=== PATIENT | female | born 1995 | race Two or more races ===

== ENCOUNTER 2024-06-30 17:39 | Emergency (ER) | payer MEDICAID, SELFPAY ==
[2024-06-30 17:40] VITALS: BMI 33.7
[2024-06-30 18:01] VITALS: BP 148/96; PULSE 95; RESP 18; TEMP 36.9; O2SAT 100
--- NOTE | 2024-06-30 18:29 | PD.EDNV ---
Nausea/Vomit./Diarrhea-RME/HPI General Chief complaint: Nausea/Vomiting/Diarrhea Stated complaint: VOMITING BILE Time Seen by Provider: 06/30/24 18:15 Arrival date/time: 06/30/24 17:39 29F with no significant PMH presents to ED with 1 day of N/V. Patient denies ab pain and drug/alcohol use, as well as dysuria and diarrhea. Limitations: no limitations Related Data Allergies Allergy/AdvReac Type Severity Reaction Status Date / Time No Known Allergies Allergy Verified 06/30/24 17:39 Past Medical History Past Medical History NEUROLOGIC: Negative Neurological Disorders or Seizures CARDIAC: Negative Cardiac Disorders or Congestive Heart Failure RESPIRATORY: Negative Chronic Obstructive Pulmonary Disease (COPD) GASTROINTESTINAL: Negative Gastrointestinal Disorders GENITOURINARY: Negative Genitourinary Disorders or Renal Disease REPRODUCTIVE: Positive Previous Pregnancies MUSCULOSKELETAL: Negative Musculoskeletal Disorders ENDOCRINE: Negative Endocrine Disorders, Diabetes Mellitus Type 1 or Diabetes Mellitus Type 2 HEMATOLOGIC: Negative Blood Disorders or Anemia OTHER HISTORY: Positive Blood Transfusions; Negative Hospitalization, Autoimmune Disease, Falls, Anesthesia Reactions or Cancer Family History FAMILY HISTORY: Positive Family Cancer; Negative Family Psychiatric Problems, Family Respiratory Disorders, Family Cardiac Disorders, Family Gastrointestinal Problems, Family Surgery or Family Anesthesia Reaction Social History SMOKING STATUS: Never smoker ED Exam General Limitations: Present no limitations General appearance: Present alert and in no apparent distress Head Head exam: Present atraumatic Eye Eye exam: Present normal appearance, PERRL and EOMI ENT ENT exam: Present normal exam, normal oropharynx and mucous membranes moist Neck Neck exam: Present normal inspection, full ROM and trachea midline Chest Chest inspection: Present normal inspection and symmetric chest wall rise Respiratory Respiratory exam: Present normal lung sounds bilaterally Cardiovascular Cardiovascular exam: Present regular rate, normal rhythm and normal heart sounds Abdominal Exam Abdominal exam: Present soft and normal bowel sounds Extremities Exam Extremities exam: Present normal inspection and full ROM Back Exam Back exam: Present normal inspection and full ROM Neurological Exam Neurological exam: Present alert, oriented X3 and CN II-XII intact Psychiatric Psychiatric exam: Present normal affect and normal mood Skin Skin exam: Present warm, dry, intact and normal color Course Quality Measures none Orders Category Date Time Status Ondansetron Odt [Zofran Odt] Med 06/30/24 18:17 Discontinued 4 mg PO X1 ONE Vital Signs Vital signs: Vital Signs Temperature 98.5 F 06/30/24 18:01 Pulse Rate 95 06/30/24 18:01 Respiratory Rate 18 06/30/24 18:01 Blood Pressure 148/96 H 06/30/24 18:01 Pulse Oximetry (%) 100 06/30/24 18:01 Oxygen Delivery Method Room Air 06/30/24 18:01 O2 at 100% on RA and WNLs Nausea/Vomiting/Diarrhea MDM Narrative MDM Narrative:: 29F with no significant PMH presents to ED with 1 day of N/V. Patient denies ab pain and drug/alcohol use, as well as dysuria and diarrhea. Physical exam reveals no ab tenderness. Patient is afebrile, calm, and alert. Patient data External records reviewed:: [facility] previous records Clinical information provided by:: patient Social determinants that could affect healthcare access:: none How is presenting disease/condition affected by chronic disease/condition?: no chronic disease Evaluation data The following diagnostics were reviewed and interpreted by me:: other (specify) (none) Lab and/or radiology exams considered but not ordered:: not ordered Interpretation Summary: n/a Medications / Prescriptions Medications / Prescriptions considered but not ordered:: ordered Medication administrations:: Medication Administration History Discontinued Medications Ondansetron HCl (Ondansetron Odt 4 Mg Tabrap) 4 mg PO X1 ONE; Protocol Stop: 06/30/24 18:18 above Consultations Consultation(s) initiated? (list below): No Diagnosis Nausea Differential Diagnosis: traveler's diarrhea, food poisoning, gastroenteritis, clostridium difficile infection, drug-induced nausea and vomiting, dehydration and other (N/V) Admission Indicated Admission indicated?: not indicated Admission Request Was there a request for admission?: No Disposition Plan Disposition Plan: Discharge Discharge Attestation Discharge Attestation: The patient and all family members were given an opportunity to ask questions and understood the discharge instructions. Discharge instructions specifically effects, indications for sooner follow up or return to the emergency department, and the expected course of current diagnosis. Patient condition: Stable Discharge Plan Patient/Caregiver Discharge Instructions Print Language: Maltese
[2024-06-30] MEDS: ONDANSETRON ODT 4 MG TABRAP PO ×2 (18:34→23:54)
[2024-06-30] MEDS: MG HYD/AL HYD/SIME (Maalox Reg) SUSP 30 ML UDC PO (20:33)
[2024-06-30] MEDS: FAMOTIDINE 20 MG TABLET 40 MG PO (20:34)
--- NOTE | 2024-06-30 20:40 | PD.EDRME ---
Rapid Medical Screening Exam [facility] Arrival date/time: 06/30/24 17:39 29F with no significant PMH presents to ED with several days of N/V and epigastric/LUQ pain, possibly burning. Patient denies drug/alcohol use, as well as dysuria and diarrhea. Patient insists on diagnostics. Chief Complaint: Nausea/Vomiting/Diarrhea Time Seen by Provider: 06/30/24 18:15 Vital signs: Vital Signs Temperature 98.5 F 06/30/24 18:01 Pulse Rate 95 06/30/24 18:01 Respiratory Rate 18 06/30/24 18:01 Blood Pressure 148/96 H 06/30/24 18:01 Pulse Oximetry (%) 100 06/30/24 18:01 Oxygen Delivery Method Room Air 06/30/24 18:01
[2024-06-30 21:21] LABS: Basophils # (Auto) 0.1 Thou/mm3 (0.0-0.2); Basophils % (Auto) 1 % (0-2.5); Eosinophils % (Auto) 0 % (0-10); Hematocrit 41.6 % (36.0-46.0); Hemoglobin 13.7 g/dL (12.0-16.0); Immature Granulocytes % (Auto) 0 % (0-0); Immature Granulocytes Auto 0.03 Thou/mm3 (0.00-0.00); Lymphocytes # (Auto) 3.3 Thou/mm3 (1.0-4.8); Lymphocytes % (Auto) 24 % (10-50); Mean Corpuscular HGB Conc 32.9 g/dl (31.0-37.0); Mean Corpuscular Hemoglobin 26.8 pg (25.0-35.0); Mean Corpuscular Volume 81 fL (80-100); Monocytes # (Auto) 0.7 Thou/mm3 (0.0-0.8); Monocytes % (Auto) 5 % (0-12); Neutrophils # (Auto) 9.5 Thou/mm3 (1.8-7.7); Neutrophils % (Auto) 70 % (37-80); Nucleated Red Blood Cell % 0 /100 WBC (0); Platelet Count 571 Thou/mm3 (140-440); RDW Standard Deviation 38.6 fL (36.4-46.3); Red Blood Count 5.12 Miln/mm3 (4.00-5.20); White Blood Count 13.6 Thou/mm3 (3.6-11.0)
[2024-06-30 21:30] VITALS: BP 131/85; PULSE 81; RESP 18; TEMP 37; O2SAT 97
[2024-06-30 21:34] LABS: Alanine Aminotransferase 25 U/L (10-49); Albumin, Serum 5.3 gm/dL (3.5-5.0); Albumin/Globulin Ratio 1.5 (1.2-2.2); Alkaline Phosphatase 65 U/L (46-116); Anion Gap 10 (7-16); Aspartate Amino Transferase 21 U/L (0-34); BUN/Creatinine Ratio 15 Ratio (12-20); Bilirubin,Total 0.6 mg/dL (0.3-1.2); Blood Urea Nitrogen 12 mg/dL (9-23); Calcium 10.2 mg/dL (8.3-10.6); Calcium (Corrected) 10.2 mg/dL (8.5-10.1); Chloride 104 mMol/L (98-107); Creatinine (Component) 0.8 mg/dL (0.6-1.3); Estimated Creatinine Clearance 96.1 mL/min (>60); Globulin 3.6 gm/dL (2.3-3.5); Glucose 96 mg/dL (74-106); Lipase 32 U/L (12-53); Osmolality,Calculated 280 (275-295); Potassium 3.7 mMol/L (3.4-5.1); Sodium 141 mMol/L (136-145); Total Protein 8.9 gm/dL (5.7-8.2); eGFR > 60 See Note
[2024-06-30 21:50] LABS: Collection Type, Urine Clean Catch
[2024-06-30 22:10] LABS: Amphetamine/Methamp Scrn,U Negative (Negative); Barbiturate Screen,Urine Negative (Negative); Benzodiazepines Screen,Urine Negative (Negative); Benzoylecgonine Screen, Ur Negative (Negative); Fentanyl Screen,Urine Negative (Negative); Opiate Screen,Urine Negative (Negative); THC Screen,Urine Negative (Negative)
[2024-06-30 22:18] LABS: Bacteria,Urine Rare; Bilirubin,Urine Negative (Negative); Blood,Urine 1+ (Negative); Clarity,Urine Clear (Clear/Hazy); Color,Urine Yellow (Lt Yel-Yel); Glucose, Urine Negative (Negative); Ketones,Urine 4+ (Negative); Leukocyte Esterase,Urine Negative (Negative); Nitrite,Urine Negative (Negative); PH,Urine 6.5 (5.0-7.0); Protein,Urine 2+ (Neg - Trace); RBC,Urine 6 /hpf (0-3); Squamous Epithelial Cell,Urine 6 /hpf (0-5); WBC,Urine 1 /hpf (0-5)
[2024-06-30 22:21] LABS: HCG Qualitative,Urine Negative
[2024-06-30] MEDS: ACETAMINOPHEN 500 MG TABLET 1000 MG PO (22:59)
--- NOTE | 2024-06-30 23:22 | EDNOTE_ITS ---
Nausea/Vomit./Diarrhea-RME/HPI General Chief complaint: Nausea/Vomiting/Diarrhea Stated complaint: VOMITING BILE Time Seen by Provider: 06/30/24 18:15 Arrival date/time: 06/30/24 17:39 Limitations: no limitations RME / HPI RME / HPI Narrative: 06/30/24 17:39 29F with no significant PMH presents to ED with several days of N/V and epigastric/LUQ pain, possibly burning. Patient denies drug/alcohol use, as well as dysuria and diarrhea. Patient insists on diagnostics. -------- Dr. Klein's Main ED Evaluation: 29yo female with no significant past medical history presents to the ED for complaints of N/V x 1 day. Patient endorses having 6 emetic episodes at home today, nonbloody. She states she hasn't been able to hold anything down, so she came in for evaluation. She denies any nathaniel rrhea, constipation, fever, chills, UTI symptoms or any other associated symptoms. No known allergies. Related Data Previous Rx's ?Medication ?Instructions ?Recorded ondansetron 4 mg disintegrating 4 mg PO Q6H PRN nausea and 06/30/24 tablet vomiting #20 tabs Allergies Allergy/AdvReac Type Severity Reaction Status Date / Time No Known Allergies Allergy Verified 06/30/24 17:39 Review of Systems Review of Systems Systems Reviewed: All systems reviewed, normal except as documented Past Medical History Past Medical History NEUROLOGIC: Negative Neurological Disorders or Seizures CARDIAC: Negative Cardiac Disorders or Congestive Heart Failure RESPIRATORY: Negative Chronic Obstructive Pulmonary Disease (COPD) GASTROINTESTINAL: Negative Gastrointestinal Disorders GENITOURINARY: Negative Genitourinary Disorders or Renal Disease REPRODUCTIVE: Positive Previous Pregnancies MUSCULOSKELETAL: Negative Musculoskeletal Disorders ENDOCRINE: Negative Endocrine Disorders, Diabetes Mellitus Type 1 or Diabetes Mellitus Type 2 HEMATOLOGIC: Negative Blood Disorders or Anemia OTHER HISTORY: Positive Blood Transfusions; Negative Hospitalization, Autoimmune Disease, Falls, Anesthesia Reactions or Cancer Family History FAMILY HISTORY: Positive Family Cancer; Negative Family Psychiatric Problems, Family Respiratory Disorders, Family Cardiac Disorders, Family Gastrointestinal Problems, Family Surgery or Family Anesthesia Reaction Social History SMOKING STATUS: Never smoker ED Exam General Limitations: Present no limitations General appearance: Present alert and in no apparent distress Head Head exam: Present atraumatic Eye Eye exam: Present normal appearance, PERRL and EOMI ENT ENT exam: Present normal exam, normal oropharynx and mucous membranes moist Neck Neck exam: Present normal inspection, full ROM and trachea midline Chest Chest inspection: Present normal inspection and symmetric chest wall rise Respiratory Respiratory exam: Present normal lung sounds bilaterally Cardiovascular Cardiovascular exam: Present regular rate, normal rhythm and normal heart sounds Abdominal Exam Abdominal exam: Present soft and normal bowel sounds; Absent tenderness or rebound Extremities Exam Extremities exam: Present normal inspection and full ROM Back Exam Back exam: Present normal inspection and full ROM Neurological Exam Neurological exam: Present alert, oriented X3 and CN II-XII intact Psychiatric Psychiatric exam: Present normal affect and normal mood Skin Skin exam: Present warm, dry, intact and normal color Course Quality Measures none Orders Category Date Time Status CBC Stat Lab 06/30/24 20:53 Completed CMP [Comprehensive Metabolic Panel] Stat Lab 06/30/24 20:53 Completed Drug Screen,Urine Stat Lab 06/30/24 21:23 Completed HCG Qualitative,Urine Stat Lab 06/30/24 21:23 Completed Lipase Stat Lab 06/30/24 20:53 Completed Urinalysis Stat Lab 06/30/24 21:23 Completed Acetaminophen Tab [Tylenol ES Tab] Med 06/30/24 22:55 Discontinued 1,000 mg PO X1 ONE Famotidine [Pepcid] Med 06/30/24 20:23 Discontinued 40 mg PO X1 ONE Ondansetron Odt [Zofran Odt] Med 06/30/24 18:17 Discontinued 4 mg PO X1 ONE Ondansetron Odt [Zofran Odt] Med 06/30/24 22:55 Discontinued 4 mg PO X1 ONE Ondansetron Odt [Zofran Odt] Med 06/30/24 23:38 Discontinued 4 mg PO X1 ONE mg Hyd/Al Hyd/Diandra Susp [Maalox Susp] Med 06/30/24 20:23 Discontinued 30 ml PO X1 ONE Vital Signs Vital signs: Vital Signs Temperature 98.5 F 06/30/24 18:01 Pulse Rate 95 06/30/24 18:01 Respiratory Rate 18 06/30/24 18:01 Blood Pressure 148/96 H 06/30/24 18:01 Pulse Oximetry (%) 100 06/30/24 18:01 Oxygen Delivery Method Room Air 06/30/24 18:01 Pulse ox is 100% on room air, which is normal according to my interpretation. Nausea/Vomiting/Diarrhea MDM Narrative MDM Narrative:: 29-year-old female coming in with nonspecific vomiting, no abdominal pain, no rebound. In the emergency department the patient had labs that showed essentially normal labs. Patient has slight dehydration with a specific gravity of 1.040. Patient is given Zofran with tolerating p.o. here in emergency department. Repeat examination shows no rebound. Return precautions are given and is good. Patient data External records reviewed:: [facility] previous records (Per chart review, patient was seen here on 12/30/21 for edema.) Clinical information provided by:: patient Social determinants that could affect healthcare access:: none Patient has the following chronic illnesses:: none How is presenting disease/condition affected by chronic disease/condition?: no chronic disease Evaluation data The following diagnostics were reviewed and interpreted by me:: lab results Lab and/or radiology exams considered but not ordered:: none Interpretation Summary: WBC count is elevated at 13.6, CMP is normal, Lipase is normal, UA shows specific gravity of 1.040, UDS is negative, according to my interpretation. Medications / Prescriptions Medications / Prescriptions considered but not ordered:: none Medication administrations:: Medication Administration History Discontinued Medications Acetaminophen (Acetaminophen 500 Mg Tablet) 1,000 mg PO X1 ONE Stop: 06/30/24 22:56 Last Admin: 06/30/24 22:59 Dose: 1,000 mg Documented By: TC Al Hydrox/Mg Hydrox/Simethicone (Mg Hyd/Al Hyd/Diandra (Maalox Reg) Susp 30 Ml Udc) 30 ml PO X1 ONE Stop: 06/30/24 20:24 Last Admin: 06/30/24 20:33 Dose: 30 ml Documented By: OA Famotidine (Famotidine 20 Mg Tablet) 40 mg PO X1 ONE Stop: 06/30/24 20:24 Last Admin: 06/30/24 20:34 Dose: 40 mg Documented By: OA Ondansetron HCl (Ondansetron Odt 4 Mg Tabrap) 4 mg PO X1 ONE; Protocol Stop: 06/30/24 18:18 Last Admin: 06/30/24 18:34 Dose: 4 mg Documented By: OA Ondansetron HCl (Ondansetron Odt 4 Mg Tabrap) 4 mg PO X1 ONE; Protocol Stop: 06/30/24 22:56 Last Admin: 06/30/24 23:19 Dose: Not Given Documented By: LOS Non-Admin Reason: Duplicate Medication on eMAR Ondansetron HCl (Ondansetron Odt 4 Mg Tabrap) 4 mg PO X1 ONE; Protocol Stop: 06/30/24 23:39 Last Admin: 06/30/24 23:54 Dose: 4 mg Documented By: LOS see above Consultations Consultation(s) initiated? (list below): No Diagnosis Nausea Differential Diagnosis: gastroenteritis, dehydration and other (viral syndrome, enteritis, electrolyte abnormality) Most likely diagnosis given after review of the tests above:: see below Admission Indicated Admission indicated?: not indicated Admission Request Was there a request for admission?: No Disposition Plan Disposition Plan: Discharge Discharge Attestation Discharge Attestation: The patient and all family members were given an opportunity to ask questions and understood the discharge instructions. Discharge instructions specifically effects, indications for sooner follow up or return to the emergency department, and the expected course of current diagnosis. Patient condition: Stable Discharge Plan Plan Patient Disposition: HOME (Self Care) Patient condition on transfer: Stable Prescriptions/Referrals Prescriptions/Med Rec: New ondansetron 4 mg tablet,disintegrating 4 mg PO Q6H PRN (Reason: nausea and vomiting) Qty: 20 0RF Referrals: Robert Arroyo FNP [Primary Care Provider] - In 1 week Problem List Clinical Impression: Vomiting Patient/Caregiver Discharge Instructions Diet Instructions: Increase oral intake to include Pedialyte and Gatorade. Education Materials: ED Vomiting (Adult) Additional Instructions: Please return to the emergency department for any worsening symptoms, you cannot tolerate liquids, fever, abdominal pain, burning when you pee, or any other concerns. Follow-up with your primary care physician in 1 week. Thank not show Print Language: Belarusian Stand Alone Forms: [employer] Award Info., Patient Portal Info Letter
[2024-06-30 23:57] VITALS: BP 131/78; PULSE 67; RESP 16; O2SAT 98
== END 2024-06-30 23:58 | disposition home or self-care (01) ==
PROVIDERS: Physician Assistant; Emergency Provider Emergency Medicine; PCP Nurse Practitioner Family
DX: R11.2 Nausea with vomiting, unspecified (principal); E86.0 Dehydration
CPT/HCPCS: 36415; 80053; 80307; 81001; 81025; 83690; 85025; 99283; Q0162; A9270